=== PATIENT | male | born 1975 | race Caucasian/White ===

== ENCOUNTER 2018-03-10 15:30 | Emergency (ER) | payer OTHER, BC ==
[~2018-03-10] VITALS: Ht 170.2 cm; Wt 80.0 kg
[2018-03-10 16:10] VITALS: BP 133/72
== END 2018-03-10 16:10 | disposition home or self-care (01) | DRG 605 ==
LOC: ED 15:30
PROC: 0HQDXZZ Repair Right Lower Arm Skin, External Approach (ICD-10-PCS; principal; 2018-03-10)
DX: S61.511A Laceration without foreign body of right wrist, initial encounter (principal); F17.210 Nicotine dependence, cigarettes, uncomplicated; W26.8XXA Contact with other sharp object(s), not elsewhere classified, initial encounter; Y93.89 Activity, other specified; Y92.89 Other specified places as the place of occurrence of the external cause; Y99.0 Civilian activity done for income or pay